=== PATIENT | male | born 1975 | race Caucasian/White ===

== ENCOUNTER 2021-03-22 18:22 | Emergency (ER) | payer OTHER, SELFPAY ==
[2021-03-22] VITALS (7 sets, daily range): BP systolic 124–152; BP diastolic 74–93; PULSE 74–84; RESP 16–20; TEMP 36.7–36.8; O2SAT 96–100; BMI 27.9
--- NOTE | 2021-03-22 18:38 | XRR_ITS ---
PROCEDURE INFORMATION: Exam: XR Left Wrist Exam date and time: 03/22/2021 6:38 PM Age: 45 years old Clinical indication: Injury or trauma; Fall; Blunt trauma (contusions or hematomas); Wrist; Left TECHNIQUE: Imaging protocol: XR Left wrist. Views: 3 or more views. COMPARISON: No relevant prior studies available. FINDINGS: Bones/joints: Displaced comminuted fracture of the distal radius with dorsal angulation of the distal fragment. Avulsion fracture of the ulnar styloid. Soft tissues: Soft tissue edema of the wrist. XR/XR wrist LT min 3V* [id number] IMPRESSION: 1. Displaced comminuted fracture of the distal radius with dorsal angulation of the distal fragment. 2. Avulsion fracture of the ulnar styloid.
--- NOTE | 2021-03-22 18:59 | ED_ITS ---
Documented by User: ALEENA Curry 03/22/21 21:29 HPI - Extremity Problem General: Chief complaint: Extremity Injury, Upper Stated complaint: l wrist injury due to fall Time Seen by Provider: 03/22/21 18:38 History of Present Illness: HPI Narrative: Patient is a 45-year-old male comes to the ED with left wrist injury. Patient says injury occurred just prior to arrival. He was working outside trimming a lomas and he got stung by a hornet and fell back and caught himself with his left arm extended out behind them. And then felt pain in his left wrist and noticed of visible deformity of his left wrist. Pain rated an 8 out of 10. Associated symptoms: Deny chest pain, fever(s) or rash Review of Systems Const: Denies: fever(s), chills or fatigue Eyes: Denies: change in vision or eye discomfort ENMT: Denies: throat pain, odynophagia, nasal discharge or nasal congestion Card: Denies: chest pain, palpitations, edema, swelling of feet/ankles, dyspnea on exertion or orthopnea Resp: Denies: dyspnea, productive cough or non-productive cough GI: Denies: abdominal pain, nausea, vomiting, diarrhea, constipation or hematochezia : Denies: flank pain, difficulty urinating, dysuria or hematuria Musc: Reports: extremity pain (left wrist) and deformity (left wrist); Denies: neck pain, back pain or extremity swelling Skin/Breast: Denies: rash or new lesions Neuro: Denies: headache(s), numbness in extremities or weakness in extremities Physical Exam Const: COMMON NORMALS: patient oriented x3, healthy appearing and alert GENERAL APPEARANCE: cooperative HENMT: COMMON NORMALS: normocephalic HEAD & SCALP: normocephalic MOUTH: Normal oral and palatal mucosa present THROAT: posterior oropharynx normal and uvula midline Neck/C-Spine: COMMON NORMALS: supple GENERAL: Yes normal visual inspection Resp: COMMON NORMALS: normal respiratory effort, No retractions, No use of accessory muscles and clear to auscultation bilaterally AUSCULTATION: clear to auscultation bilaterally Cardio: COMMON NORMALS: regular rate, regular rhythm, S1 normal heart sound present, S2 normal heart sound present, No gallops present (Cardio), No clicks present (Cardio), No murmurs present (Cardio) and Peripheral pulses 2+ throughout RATE: regular rate RHYTHM: regular rhythm HEART SOUNDS: S1 normal heart sound present and S2 normal heart sound present PERIPHERAL PULSES: Peripheral pulses 2+ throughout GI: COMMON NORMALS: Normal to inspection, nondistended, normoactive bowel sounds present, Soft to palpation, non-tender and no masses PALPATION: Yes Soft to palpation : COMMON NORMALS: Yes no CVA tenderness BLADDER/KIDNEY EXAM: Yes no CVA tenderness Back/Pelvis: COMMON NORMALS: no CVA tenderness Extremity: GENERAL: Yes normal exam except as noted LEFT UPPER EXTREMITY: Yes wrist Left wrist: Yes inspection (Obvious dinner fork deformity noted.), Yes palpation (Tenderness to palpation of wrist), Yes ROM (Limited due to pain) and Yes neurovascular exam (Neurovascular intact) Neuro: COMMON NORMALS: patient oriented x3 and moves all extremities SENSORIUM/ORIENTATION: Yes alert Skin: GENERAL SKIN EXAM: dry skin Course ED course: Dr. Peterson performed the sedation and reduction of patient's left wrist fracture. Vital Signs: Vital signs: Vital Signs Temperature 98.1 F 03/22/21 20:35 Pulse Rate 78 03/22/21 21:10 Respiratory Rate 18 03/22/21 21:10 Blood Pressure 139/74 03/22/21 21:10 Pulse Oximetry 100 03/22/21 21:10 MDM - Extremity (Nontraumatic) Imaging Data^: Xray Ortho: Attestation: I personally reviewed and interpreted this imaging study as follows: My impression: Left wrist x-ray?distal head radial and ulnar fracture with displacement. Discharge Plan Discharge Patient Disposition: Home Clinical Impression: Fracture of wrist Qualifiers: Encounter type: initial encounter Fracture type: closed Laterality: left Qualified Code(s): S62.102A - Fracture of unspecified carpal bone, left wrist, initial encounter for closed fracture Condition: Stable Prescriptions: New ibuprofen 800 mg tablet 800 mg PO Q8H PRN (Reason: pain) Qty: 30 RF: 0 Discharge Orders: Discharge ED (Routine); Ordered 03/22/21 Ordered By: Milton Bernstein Referrals: Erasto Pina MD [Primary Care Provider] - Discharge Diet: Regular Discharge Activity: Limit activity as instructed Patient Instructions: Wrist Fracture in Adults (ED), Open Reduction and In ternal Fixation of a Wrist Fracture (GEN), Opioid Safety Activity Restrictions/Additional Instructions: Follow-up with medical provider as directed. Case management will be contacting you in the next several days to set up an appointment with orthopedic doctor for follow-up and reevaluation. Keep splint on and dry and limit activity with left arm. Take medications as prescribed. Return to the ER or your medical provider if condition worsens. Please read and understand discharge instructions. Thank you for choosing [facility] for your healthcare needs today. Please realize this is an emergency room and that we are providing you with a medical screening exam and this may not be complete and all inclusive of all the testing and or work up that you may need to determine your ailment or severity of your illness. It is very important that you follow up as instructed or that you return to the Emergency Department should you have concerns or if your condition changes or worsens in any way. Coding Level of Care Code ED Stores Clerk for Chg Fwd Exam Comprehensive Documented by User: Jeff Peterson MD 03/22/21 21:12 HPI - Extremity Problem General: Chief complaint: Extremity Injury, Upper Stated complaint: l wrist injury due to fall Time Seen by Provider: 03/22/21 18:38 Procedures Orthopedic Fracture Reduction Fracture #1: Time Out Performed: Yes Side: left Fracture Reduction Location: radius and ulna Analgesia: procedural sedation Technique: direct manipulation Post Reduction X-rays Demonstrate: anatomical reduction Post-reduction neuro exam: intact Post-reduction vascular exam: intact Patient Tolerated Procedure: well Procedural Sedation Indication: fracture/dislocation reduction ASA Class: I Time of Last PO Intake: 18:10 Preparation: equipment monitor phototypesetting applied, pulse oximeter and capnometry used IV Propofol dose (mg): 100 Patient Tolerated Procedure: well Complications: none Course Vital Signs: Vital signs: Vital Signs Temperature 98.1 F 03/22/21 20:35 Pulse Rate 78 03/22/21 21:10 Respiratory Rate 18 03/22/21 21:10 Blood Pressure 139/74 03/22/21 21:10 Pulse Oximetry 100 03/22/21 21:10 MDM - Extremity (Nontraumatic) MDM Narrative: Medical decision making narrative: Patient presents here with a wrist fracture. I saw patient with midlevel and did reduce the wrist myself. Patient was also placed in a splint and is neurologic intact. Patient is to follow-up with orthopedics and return if worsening. Patient understands agrees to plan. Discharge Plan Discharge Patient Disposition: Home Clinical Impression: Fracture of wrist Qualifiers: Encounter type: initial encounter Fracture type: closed Laterality: left Qualified Code(s): S62.102A - Fracture of unspecified carpal bone, left wrist, initial encounter for closed fracture Condition: Stable Prescriptions: New ibuprofen 800 mg tablet 800 mg PO Q8H PRN (Reason: pain) Qty: 30 RF: 0 Discharge Orders: Discharge ED (Routine); Ordered 03/22/21 Ordered By: Milton Bernstein Referrals: Erasto Pina MD [Primary Care Provider] - Discharge Diet: Regular Discharge Activity: Limit activity as instructed Patient Instructions: Wrist Fracture in Adults (ED), Open Reduction and Internal Fixation of a Wrist Fracture (GEN), Opioid Safety Activity Restrictions/Additional Instructions: Follow-up with medical provider as directed. Case management will be contacting you in the next several days to set up an appointment with orthopedic doctor for follow-up and reevaluation. Keep splint on and dry and limit activity with left arm. Take medications as prescribed. Return to the ER or your medical provider if condition worsens. Please read and understand discharge instructions. Thank you for choosing [facility] for your healthcare needs today. Please realize this is an emergency room and that we are providing you with a medical screening exam and this may not be complete and all inclusive of all the testing and or work up that you may need to determine your ailment or severity of your illness. It is very important that you follow up as instructed or that you return to the Emergency Department should you have concerns or if your condition changes or worsens in any way. Coding Level of Care Code ED Stores Clerk for Yasir Walker Exam Comprehensive
[2021-03-22] MEDS: morphine 4 mg/mL SDV 1 mL IM (19:38)
--- NOTE | 2021-03-22 20:25 | XRR_ITS ---
PROCEDURE INFORMATION: Exam: XR Left Wrist Exam date and time: 03/22/2021 8:25 PM Age: 45 years old Clinical indication: Screening exam; Post reduction TECHNIQUE: Imaging protocol: XR Left wrist. Views: 1 or 2 views. COMPARISON: CR (UP EXM, ) 03/22/2021 7:22 PM FINDINGS: Bones/joints: Comminuted distal radial fracture with satisfactory alignment status post reduction. Ulnar styloid fracture again demonstrated. Soft tissues: Soft tissue edema of the wrist. XR/XR wrist LT 2V [id number] IMPRESSION: Comminuted distal radial fracture with satisfactory alignment status post reduction.
[2021-03-22] MEDS: propofol 10 mg/mL SDV 20 mL 100 MG IVP (20:33)
[2021-03-22] MEDS: HYDROcodone-acetaminophen 7.5-325 mg Tablet 2 TAB PO (21:09)
--- NOTE | 2021-03-23 11:10 | DCPLANNER ---
manager order had message to schedule a follow up appointment for patient with ortho. manager order called the ortho clinic, spoke with Annita, gave clinic patients information. manager order was told that patients information would be printed and reviewed. Clinic will call patient with appointment information.
--- NOTE | 2021-03-24 07:39 | DCPLANNER ---
Patient has a follow up appointment scheduled for Tuesday, March 25, 2021 at 9:[address] Mackay at [facility]. Clinic will call patient with appointment information.
--- NOTE | 2021-04-02 12:39 | DCPLANNER ---
Patient had a follow up appointment scheduled for 03.25.21 with ortho - patient did attend appointment.
== END 2021-03-22 21:14 | disposition home or self-care (01) ==
PROVIDERS: Emergency Provider Emergency Medicine; PCP Family Medicine
DX: S52.122A Displaced fracture of head of left radius, initial encounter for closed fracture (principal); S52.602A Unspecified fracture of lower end of left ulna, initial encounter for closed fracture; W19.XXXA Unspecified fall, initial encounter
CPT/HCPCS: 25605; 73100; 73110; 96372; 96374; 99284; J2270; J2704

== ENCOUNTER → 2021-03-24 14:09 | Outpatient (BNVA) | payer OTHER, SELFPAY | PROVIDERS: PCP Family Medicine; Visit Provider Orthopaedic Surgery | DX: Z20.822 Contact with and (suspected) exposure to COVID-19 (principal); Z01.812 Encounter for preprocedural laboratory examination | CPT/HCPCS: 87635 ==

== ENCOUNTER 2021-03-26 06:26 | Day surgery (SDC) | payer OTHER, SELFPAY ==
[2021-03-25 15:32] VITALS: BMI 27.1
[2021-03-26] VITALS (14 sets, daily range): BP systolic 128–182; BP diastolic 85–100; PULSE 56–91; RESP 12–20; TEMP 36.3–36.6; O2SAT 94–100
--- NOTE | 2021-03-26 | SCC_ITS ---
Procedure Done: Open reduction internal fixation left distal radius, 3 part 41.6 seconds of fluoroscopic guidance, for a cumulative dose of 1.06 mGy, was provided to Dr. Craft by the radiology department. C-arm images of the LEFT wrist were saved for the patient's permanent record. [facility]ITALJocelyn
--- NOTE | 2021-03-26 | XR_ITS ---
WS: [id number] Left wrist, C-arm fluoroscopy views, 03/26/2021 Clinical Data: ORIF wrist Comparison: Left wrist, 03/22/2021. Findings: The comminuted fracture of the distal left radius is reduced with a ventral plate and multiple orthop edic screws. The ulnar styloid fracture is still visible. XR/XR wrist LT 2V [id number] Impression: Internal fixation of distal left radial fracture.
--- NOTE | 2021-03-26 06:52 | W.PM.OPSUD ---
Surgery/Procedure H&P Update DATE OF PROCEDURE: March 26, 2021 DATE H&P PERFORMED: 03/25/21 H&P UPDATE INFORMATION: I have reviewed H&P completed within last 30 days and No changes to prior documentation PREOP DIAGNOSIS: Fracture Left distal radius PLANNED PROCEDURE: Operation Date: 03/26/21 08:00 Proposed Procedures p ORIF Left Wrist(Not Applicable) - Pastor Craft MD
[2021-03-26] MEDS: sodium chloride 0.9% 1,000 ML 30 ML IV (07:01)
--- NOTE | 2021-03-26 07:05 | ANES.PREANE2 ---
Pre-Anesthetic Assessment Pre-Anesthetic Assessment: Height/Weight: Height 1.8 m Weight 88.451 kg Temp Pulse Resp BP Pulse Ox 97.3 F L 56 L 18 131/85 98 03/26/21 06:39 03/26/21 06:39 03/26/21 06:39 03/26/21 06:39 03/26/21 06:39 Preop Diagnosis: Fracture Left distal radius Proposed Procedure: Operation Date: 03/26/21 08:00 Proposed Procedures p ORIF Left Wrist(Not Applicable) - Pastor Craft MD Was Beta Michelle taken within 24 hours: N/A Was Clonidine taken within 24 hours: N/A Last intake: Intake Last Liquid Date 03/25/21 Last Liquid Time 23:45 Last Solid Date 03/25/21 Last Solid Time 23:45 Social: Social History: No alcohol and No tobacco Exam: Pre-Anes Outpt Exam: alert, oriented x 3, clear to auscultation bilaterally and regular rate & rhythm Airway: Submandibular: WNL Cervical ROM: WNL MP: 2 Dentition: Full History/ROS: No significant history except as noted Anesthetic Plan: ASA status: 1 Anesthesia: General and Regional (specify below) (Discussed left interscalene blk postop if poor pain control) Risk of > 500 ml blood loss (7ml/kg in children): No Meds/Allergies Current Medications: Current Medications Generic Name Dose Route Start Last Admin Trade Name Freq PRN Reason Stop Dose Admin Sodium Chloride 1,000 mls @ 30 ml s/hr 03/26/21 06:45 03/26/21 07:01 Sodium Chloride 0.9% IV 03/27/21 06:44 30 mls/hr .Q24H APPLE Administration Data Anesthesia Cardiac Studies: No Data to Display
--- NOTE | 2021-03-26 09:48 | P.OP_ITS ---
Operative Report Date of procedure: March 26, 2021 Pre-op Diagnosis: Fracture Left distal radius, 3 parts Post-op diagnosis: same Post-op Findings: Same Procedure Done: Open reduction internal fixation left distal radius, 3 part Implants: [place] Variax standard short plate Pathology: none sent Surgeon: Pastor Craft Anesthesia: General Estimated blood loss (mL): 25 Tourniquet time (min): 42 Complications: None Findings: Mr. Evangelista had a intra-articular fracture of the left distal radius with at least 2 parts an intra-articular incongruity. He had dorsal comminution Condition: stable Disposition: PACU Brief History: Mr. Evangelista sustained a fracture of his left distal radius with a fall with a displaced intra-articular fracture. Due to his high activity levels surgical stabilization was chosen to maintain a congruent articular surface and preserve alignment. Procedure: Initial attempts were made at closed reduction however a satisfactory stable reduction could not be obtained. A decision was made to proceed with open reduction internal fixation.A 5 cm long incision was made along over the flexor carpi radialis tendon. Dissection was carried down through the tendon s jaleesa. Dissection was carried down bluntly to the pronator quadratus. The pronator quadratus was elevated off of the distal radius leaving a cuff for later repair. Closed reduction was accomplished of the distal radius by applying traction across the wrist with reduction of the articular surface.. A [place] Variax short standard plate was applied. It was fixed distally with 7 locking screws and proximally with 3 bicortical screws. Intraoperative imaging showed excellent position of the hardware. The wound was irrigated with saline. The pronator quadratus was reapproximated with 2-0 Vicryl. Subcutaneous tissues were closed with 2-0 Vicryl. The skin was closed with skin jamil. Sterile dressings were applied. The patient was taken to outpatient surgery in stable condition.
[2021-03-26] MEDS: fentaNYL 50 mcg/mL INJ 2mL IVP ×2 (09:50→09:55)
[2021-03-26] MEDS: ketorolac 30 mg/mL INJ IVP (09:50)
[2021-03-26] MEDS: HYDROmorphone 1 mg/mL INJ 1 mL 0.5 MG IVP ×2 (10:02→10:12)
[2021-03-26] MEDS: HYDROcodone-acetaminophen 7.5-325 mg Tablet 1 TAB PO (10:48)
--- NOTE | 2021-03-26 14:38 | ANE.PACU2 ---
Inpatient post-anesthesia follow up: Airway intact: Yes Vital signs: Temperature 97.8 F Pulse Rate 58 Respiratory Rate 20 Blood Pressure 140/93 Pulse Oximetry 95 Oxygen Delivery Me thod Room Air Oxygen Flow Rate 2 Fraction of Inspir ed Oxygen Hydration adequate: Yes Nausea and vomiting: No Pain level: 2 Mental status: Baseline
== END 2021-03-26 11:15 | disposition home or self-care (01) ==
PROVIDERS: PCP Family Medicine; Visit Provider Orthopaedic Surgery
PROC: (CPT 25609; principal; 2021-03-26 08:00)
DX: S52.572A Other intraarticular fracture of lower end of left radius, initial encounter for closed fracture (principal); W18.30XA Fall on same level, unspecified, initial encounter
CPT/HCPCS: 25609; 73100; 76000; C1713; J0690; J1100; J1170; J1580; J1885; J2405; J2704; J3010; J3490; J7030

== ENCOUNTER 2021-03-30 13:32 | Outpatient (CLI) | payer OTHER, SELFPAY | END 2021-03-30 13:33 | disposition home or self-care (01) | LOC: SPT 13:33 | PROVIDERS: PCP Family Medicine; Visit Provider Orthopaedic Surgery | DX: Z46.89 Encounter for fitting and adjustment of other specified devices (principal); S52.592D Other fractures of lower end of left radius, subsequent encounter for closed fracture with routine healing; X58.XXXD Exposure to other specified factors, subsequent encounter | CPT/HCPCS: 97760; L3982 ==

== ENCOUNTER → 2021-04-21 09:33 | Outpatient (BNVA) | payer OTHER, SELFPAY | PROVIDERS: PCP Family Medicine; Visit Provider Orthopaedic Surgery | DX: Z48.89 Encounter for other specified surgical aftercare (principal) | CPT/HCPCS: 73110 ==

== ENCOUNTER → 2021-05-12 09:59 | Outpatient (BNVA) | payer OTHER, SELFPAY | PROVIDERS: PCP Family Medicine; Visit Provider Orthopaedic Surgery | DX: Z48.89 Encounter for other specified surgical aftercare (principal) | CPT/HCPCS: 73110 ==